=== PATIENT | female | born 1945 | race Two or more races ===

== ENCOUNTER 2021-04-10 22:58 | Emergency (ER) | payer MEDICARE, SELFPAY ==
[2021-04-10 23:00] VITALS: BP 189/101; PULSE 64; RESP 18; TEMP 36.3; O2SAT 99
[2021-04-10 23:30] VITALS: BP 172/93; PULSE 62; RESP 16; O2SAT 97
[2021-04-10 23:58] VITALS: BP 153/78; PULSE 62; RESP 18; O2SAT 96
[2021-04-11 00:28] VITALS: BP 137/68; PULSE 61; RESP 15; O2SAT 98
[2021-04-11 00:45] LABS: Anion Gap 8 mmol/L (8-16); Blood Urea Nitrogen 14 mg/dL (7-17); Calcium 9.3 mg/dL (8.4-10.2); Carbon Dioxide 23 mmol/L (22-30); Chloride 109 mmol/L (98-107); Estimated CRCL calculation 71 ml/min; Estimated Glomerular Filt Rate > 60; Glucose 137 mg/dL (65-105); Magnesium 2.1 mg/dL (1.6-2.3); Potassium 3.6 mmol/L (3.4-5.0); Sodium 140 mmol/L (137-145)
--- NOTE | 2021-04-11 01:58 | ED.GENADULT ---
HPI - General Adult General Chief complaint: Recheck/Abnormal Lab/Rx Stated complaint: Blood pressure elevated, not feeling well. Time Seen by Provider: 04/10/21 23:29 History of Present Illness HPI narrative: Patient is a 75-year-old female who presents ER with elevated blood pressures. Reports at home her blood pressures been running in the 200s on multiple checks. She had taken her home Coreg and hydralazine. Reports she had been very upset during the day and is unsure if that was why her blood pressure was elevated. No chest pain or shortness of breath or nausea or vomiting. No additional concerns. Related Data Home Medications Medication Instructions Recorded Confirmed aspirin 81 mg tablet,delayed 81 mg PO DAILY 01/22/21 01/22/21 release Allergies Allergy/AdvReac Type Severity Reaction Status Date / Time poison naga extract Allergy Mild rash Verified 04/10/21 23:22 Sulfa (Sulfonamide Allergy Mild Hives Verified 04/10/21 23:22 Antibiotics) Review of Systems Review of Systems: All systems reviewed & are unremarkable except as noted in HPI and below Constitutional: Constitutional: Denies chills, Denies fever(s) and Denies weakness Cardiovascular: Cardiovascular: Denies chest pain, Denies rapid heart rate and Denies radiating jaw, neck or arm pain Respiratory: Respiratory: Denies cough and Denies dyspnea Gastrointestinal: Gastrointestinal: Denies nausea Psychiatric: Psychiatric: Reports anxiety PMFSH Past Medical History Medical History (Updated 04/11/21 @ 02:01 by Olayinka Villasenor MD) Generalized anxiety disorder Hypertension Mixed hyperlipidemia Osteoarthritis, multiple sites Surgical History Surgical History (Updated 04/11/21 @ 02:00 by Olayinka Villasenor MD) H/O arthroscopic knee surgery Family History Family History Other Family history of coronary artery disease Hypertension Social History Social History Social History: Second hand tobacco smoke exposure: No Alcohol intake: never Substance use: never Substance use type: does not use Gender identity (if verbalized by the patient): Female Exam Narrative: Exam Narrative: GENERAL: Well-appearing, well-nourished, and in no acute distress. HEAD: Normocephalic, atraumatic. ENT: Mucous membranes moist. CHEST: Clear to auscultation. No respiratory distress. HEART: Regular rate and rhythm. Normal peripheral pulses. ABDOMEN: Soft, nontender, nondistended. EXTREMITIES: Normal range of motion. No edema. SKIN: Warm, dry, no rash. NEURO: Alert and oriented x3. Course Course Emergency Course: Blood pressure has been variable but markedly improved from what she reports at home. Recommend follow-up with PCP. Vital Signs Vital signs: Vital Signs Temperature 97.4 F L 04/10/21 23:00 Pulse Rate 64 04/10/21 23:00 Respiratory Rate 18 04/10/21 23:00 Blood Pressure 189/101 H 04/10/21 23:00 Pulse Oximetry 99 04/10/21 23:00 Temperature 97.4 F L 04/10/21 23:00 Pulse Rate 61 04/11/21 00:28 Respiratory Rate 15 04/11/21 00:28 Blood Pressure 137/68 04/11/21 00:28 Pulse Oximetry 98 04/11/21 00:28 Medical Decision Making Vital Signs Vital Signs: Vital Signs Temperature 97.4 F L 04/10/21 23:00 Pulse Rate 64 04/10/21 23:00 Respiratory Rate 18 04/10/21 23:00 Blood Pressure 189/101 H 04/10/21 23:00 Pulse Oximetry 99 04/10/21 23:00 Temperature 97.4 F L 04/10/21 23:00 Pulse Rate 61 04/11/21 00:28 Respiratory Rate 15 04/11/21 00:28 Blood Pressure 137/68 04/11/21 00:28 Pulse Oximetry 98 04/11/21 00:28 Lab Data Result diagrams: 04/11/21 00:27 Labs: Lab Results 04/11/21 Range/Units 00:27 Sodium 140 (137-145) mmol/L Potassium 3.6 (3.4-5.0) mmol/L Chloride 109 H (98-107) mmol/L Carbon Dioxide 23 (22-
[2021-04-11 02:14] VITALS: BP 141/78; PULSE 65; RESP 18; O2SAT 100
== END 2021-04-11 02:16 | disposition home or self-care (01) ==
PROVIDERS: Emergency Provider Emergency Medicine; PCP Family Medicine
DX: I10 Essential (primary) hypertension (principal); Z79.82 Long term (current) use of aspirin; F41.1 Generalized anxiety disorder; E78.2 Mixed hyperlipidemia; M19.90 Unspecified osteoarthritis, unspecified site
CPT/HCPCS: 36415; 80048; 83735; 99283

== ENCOUNTER 2021-04-30 08:12 | Outpatient (CLI) | payer MEDICARE, SELFPAY ==
--- NOTE | ~2021-04-30 | MM_ITS ---
EXAMINATION: MM screening dustin BI w giancarlo HISTORY: Screening TECHNIQUE: Craniocaudal and mediolateral oblique 3-D tomosynthesis images were obtained and synthetic 2-D images were generated. CAD analysis was submitted and interpreted. COMPARISON: 12/27/2017 BREAST PARENCHYMAL COMPOSITION: There are scattered areas of fibroglandular density. FINDINGS: There is no evidence of suspicious mass, calcification, or architectural distortion to sugg est malignancy in either breast. There has been no suspicious interval change. IMPRESSION: 1. No mammographic evidence of malignancy. 2. Recommend routine screening mammography in one year. BI-RADS Category 1: Negative Reviewed, dictated and finalized at location A.
--- NOTE | ~2021-04-30 | DEXA_ITS ---
Bone Density Report Name: Sarah Whitley Age: 75 Sex: Female Ethnicity: White Date of : 1945 Indication: osteopenia; height loss; prior fracture; postmenopausal Referring Provider: Sary Blunt Study: Bone densitometry was performed. Exam Date: April 30, 2021 Accession number: [id number] Bone Density: Region BMD T-score Z-score Classification AP Spine (L1, L3) 1.133 1.1 3.6 Normal Femoral Neck (Left) 0.687 -1.5 0.7 Osteopenia Total Hip (Left) 0.804 -1.1 0.8 Osteopenia Total Hip Bilateral Avg 0.770 -1.4 0.5 Osteopenia Femoral Neck (Right) 0.818 -0.3 1.9 Normal Total Hip (Right) 0.734 -1.7 0.2 Osteopenia World Health Organization criteria for BMD impression classify patients as: Normal (T-score at or above -1.0), Osteopenia (T-score between -1.0 and -2.5), or Osteoporosis (T-score at or below -2.5). 10-year Fracture Risk(1): Major Osteoporotic Fracture 17% Hip Fracture 3.5% Reported Risk Factors: [place] (), Neck BMD=0.687, BMI=23.2, previous fracture (1) FRAX(R) Version 3.08. Fracture probability calculated for an untreated patient. Fracture probability may be lower if the patient has received treatment. Previous Exams: Region Exam Age BMD T-score BMD Change BMD Change Date g/cm2 vs Baseline vs Previous AP Spine(L1, L3) 04/30/2021 75 1.133 1.1 -0.004(-0.3%) -0.004(-0.3%) 02/08/2019 73 1.136 1.1 Total Hip(Left) 04/30/2021 75 0.804 -1.1 -0.024(-2.9%) -0.024(-2.9%) 02/08/2019 73 0.827 -0.9 Total Hip(Right) 04/30/2021 75 0.734 -1.7 0.000(0.0%) 0.000(0.0%) 02/08/2019 73 0.734 -1.7 *Denotes significance at 95% confidence level, LSC for AP Spine = 0.022 g/cm2, LSC for Total Hip = 0.027 g/cm2 Clinical Information Provided by Patient: Has had a low trauma fracture Has used the following medications: Vitamin D Patient maximum height was 65 Menopause Age: 53 Onset of menses at age 11 Number of children 2 Impression: The patient has low bone mass, based on the Right Total Hip T-score. The patient has an estimated ten-year risk of hip fracture of 3.5% and an estimated ten-year risk of major fracture of 17%, based on the WHO FRAX algorithm. The patient has risk factors, including: previous fracture. No significant bone loss was observed. Discussion: BONE DENSITY IS LOW AT ONE OR MORE SKELETAL SITES. THE PATIENT'S BMD AND CLINICAL RISK FACTORS CONTRIBUTE TO THIS PATIENT'S INCREASED RISK OF FRAC
== END 2021-04-30 08:13 | disposition home or self-care (01) ==
PROVIDERS: PCP Family Medicine; Visit Provider Physician Assistant
DX: Z12.31 Encounter for screening mammogram for malignant neoplasm of breast (principal); Z78.0 Asymptomatic menopausal state; M85.852 Other specified disorders of bone density and structure, left thigh; M85.851 Other specified disorders of bone density and structure, right thigh
CPT/HCPCS: 77063; 77067; 77080

== ENCOUNTER 2023-03-18 08:13 | Outpatient (CLI) | payer MEDICARE, SELFPAY ==
[2023-03-24 12:02] VITALS: BMI 22.3
--- NOTE | 2023-03-24 12:02 | WPDSLEEPSTUD ---
Sleep Study Date of Study: 03/18/23 Ordering Provider: Luma Demarco, BOTTOM CAGER Interpreting Physician: Sharron Rodriguez MD Sleep Study Type: Polysomnogram Height: 1.63 m Weight: 58.967 kg Body Mass Index: 22.3 Neck Circumference (inches): 13 [place]: 8 Reason for Sleep Study Restless legs syndrome, paroxysmal atrial fibrillation, low oxygen levels at night Sleep History Sarah Whitley is a 77-year-old female with paroxysmal atrial fibrillation who is being referred for sleep study due to paroxysmal atrial fibrillation and oxygen desaturation at night. She rarely awakens at night with heartburn, belching, or coughing.? She does not know if she snores. She rarely has trouble sleeping when she has a cold. She rarely sweats excessively at night, occasionally notices her heart pounding or beating irregularly at night. ?She frequently falls asleep during the day. She does not fall asleep while driving. She does not have loss of muscle tone with strong emotion. ?She does not have daytime difficulties due to excessive daytime sleepiness.? She rarely feels paralyzed on waking or falling asleep. She rarely experiences vivid dreams upon waking or falling asleep. She never feels afraid of going to sleep. She rarely has nightmares. She occasionally recalls her dreams. She frequently has thoughts racing through his mind, occasionally feels sad or depressed, frequently feels anxiety or worries about things. She never notices parts of her body jerk. She does not mention whether or not she kicks at night. She frequently feels crawling or aching feelings in his legs. She always feels leg pain at night. She never has morning jaw pain. ?She always is bothered by pain during the day and always is awakened by pain during the night. ?She frequently wakes up feeling stiff in the morning, frequently feels sore or achy in the morning, frequently wakes with pain in the neck, spine or joints. ?She reports an 8 lb weight loss in the last year. Normal bedtime is around midnight usually falling asleep quickly, typically gets about 4-5 hours of sleep per night, waking time is variable. ?She wakes up between 3 and 4 times during the night, returns to sleep sometimes more quickly than other times.? While awake at night, she may go to the bathroom or put he wraps on parts of her body that or aching.? She takes naps in the afternoon or evening. ?A short nap lasting 10 or 15 minutes may be refreshing.? She is usually drowsy on waking in the morning. Habits: Tobacco: never?? Caffeine: none?? Alcohol: none?? Recreational substances: none. [facility] Past Medical History Medical History Dyslipidemia Essential (primary) hypertension Generalized anxiety disorder Hypertension Mixed hyperlipidemia Mixed hyperlipidemia Murmur, cardiac Osteoarthritis, multiple sites Osteopenia Postmenopausal Psychophysiological insomnia Screening for breast cancer Screening for colon cancer Vitamin D deficiency Surgical History Surgical History H/O arthroscopic knee surgery Family History Family History Other Family history of coronary artery disease Hypertension Social History Social History Social History: Smoking status: Never smoker Second hand tobacco smoke exposure: No Alcohol intake: current Alcohol use details: occasionally Substance use: never Substance use type: does not use Lack of Transportation: No Lack of Food: Never True Current Housing: I Have Housing Concerned About Future Housing: No Difficulty Paying Gas/Electric Bills: No Difficulty Paying for Meds: No Currently Unemployed: YES Difficulty w/ Childcare or Family Care: No Living arrangements: with family Occupation/Education: retired Gender identity (if verbalized by th
== END 2023-03-19 07:01 | disposition home or self-care (01) ==
LOC: ANHCSM 08:14
PROVIDERS: PCP Family Medicine; Visit Provider Nurse Practitioner Adult Health
DX: G47.61 Periodic limb movement disorder (principal)
CPT/HCPCS: 95810

== ENCOUNTER 2023-09-09 11:47 | Outpatient (CLI) | payer MEDICARE, SELFPAY ==
--- NOTE | 2023-09-09 12:18 | ECG_ITS ---
Measurements Intervals [place] Rate: 53 P: 63 TN: 159 QRS: -55 QRSD: 93 T: 4 QT: 469 QTc: 443 Interpretive Statements SINUS BRADYCARDIA WITH OCCASIONAL SUPRAVENTRICULAR PREMATURE COMPLEXES LEFT ANTERIOR FASCICULAR BLOCK [QRS AXIS <= -45, QR IN I, RS IN II] ABNORMAL ECG NO PREVIOUS ECG AVAILABLE FOR COMPARISON Electronically Signed On 09-09-2023 13:39:52 RADAR SIGNAL PROCESSING ENGINEER by Kelby Wallace M.D.
[2023-09-09 12:29] LABS: Hematocrit 39.3 % (37.0-47.0); Hemoglobin 12.2 g/dL (12.0-15.0)
[2023-09-09 12:49] LABS: Albumin Level 4.3 g/dL (3.5-5.1); Estimated Glomerular Filt Rate > 60; Glucose 95 mg/dL (65-110)
== END 2023-09-09 11:48 | disposition home or self-care (01) ==
PROVIDERS: PCP Family Medicine; Visit Provider Orthopaedic Surgery
DX: M16.11 Unilateral primary osteoarthritis, right hip (principal); E78.5 Hyperlipidemia, unspecified; I48.0 Paroxysmal atrial fibrillation
CPT/HCPCS: 36415; 82040; 82565; 82947; 85014; 85018; 93005

== ENCOUNTER 2023-09-23 20:52 | Emergency (ER) | payer MEDICARE, SELFPAY ==
--- NOTE | ~2023-09-23 | CT_ITS ---
EXAMINATION: CT brain wo con DATE: 09/23/2023 21:45 INDICATION: Head injury TECHNIQUE: Computed tomography (CT) of the head was performed without intravenous contrast. Sagittal and coronal reconstructions were performed. The mA was adjusted according to patient size. Iterative reconstruction technique was employed. The dose-length product was 681.00 mGy-cm. COMPARISON: None FINDINGS: No fracture. No acute intracranial hemorrhage, acute infarction or abnormal extra axial fluid collect ion. Relatively symmetric bilateral basal ganglia small old lacunar infarcts involving the heads of t he caudate nuclei and anterior limbs of the internal capsules. Symmetric prominence of the sulci cons istent with mild age-appropriate diffuse cerebral volume loss. Ventricles are normal and symmetric. N o mass/mass effect. Changes of bilateral intraocular lens replacement. The orbits, paranasal sinuses and mastoid air cells are normal. Intracranial calcified cerebral atherosclerosis is noted. I ESSION: 1. No fracture or acute intracranial process. 2. 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 Reviewed, dictated and finalized at location A. MER OPERATOR
[2023-09-23 20:53] VITALS: BP 185/89; PULSE 66; RESP 20; TEMP 37; O2SAT 98
--- NOTE | 2023-09-23 21:39 | ED.GENADULT ---
HPI - General Adult General Chief complaint: Head Injury Stated complaint: head trauma Time Seen by Provider: 09/23/23 21:22 History of Present Illness HPI narrative: the patient is a 78-year-old female who presents emerged from with a chief complaint of head injury. The patient reports that she was working on a fireplace and stood up and a stocking sepulveda fell off of the insulin structure in the head the patient reports that she is on anticoagulants and was concerned because you was told if she ever hit her head on a blood thinner that she should be checked out the patient denies loss of consciousness reports that she is just has some pain in the right occipital region of her scalp reports the laceration. Related Data Home Medications Medication Instructions Recorded Confirmed alprazolam 0.25 mg tablet 0.25 mg PO QHS PRN 02/18/22 08/05/23 ascorbate calcium (vitamin C) 500 500 mg PO DAILY 02/18/22 08/05/23 mg tablet calcium carbonate 600 mg calcium 600 mg PO DAILY 02/18/22 08/05/23 (1,500 mg) tablet calcium polycarbophil 625 mg 1,250 mg PO DAILY 02/18/22 08/05/23 tablet (FiberCon) cholecalciferol (vitamin D3) 50 50 mcg PO DAILY 02/18/22 08/05/23 mcg (2,000 unit) capsule rolscybj-vvrc-cxys 8 mg-folic 400 1 tablet PO DAILY 02/18/22 08/05/23 mcg-K 50 mcg-lutein 300 mcg tablet (Centrum Silver Women) rivaroxaban 20 mg tablet (Xarelto) 20 mg PO DAILY 02/18/22 08/05/23 sotalol 80 mg tablet 80 mg PO DAILY 02/18/22 08/05/23 Allergies Allergy/AdvReac Type Severity Reaction Status Date / Time poison naga extract Allergy Mild rash Verified 09/23/23 21:20 Sulfa (Sulfonamide Allergy Mild Hives Verified 09/23/23 21:20 Antibiotics) Review of Systems Review of Systems: A 10 system review of systems was completed on the patient and is negative except for what is stated in the HPI. Nursing and ancillary documentation was reviewed. FORMERLY [facility], [facility] Past Medical History Medical History Dyslipidemia Essential (primary) hypertension Generalized anxiety disorder Hypertension Mixed hyperlipidemia Mixed hyperlipidemia Murmur, cardiac Osteoarthritis, multiple sites Osteopenia Postmenopausal Psychophysiological insomnia Screening for breast cancer Screening for colon cancer Vitamin D deficiency Surgical History Surgical History H/O arthroscopic knee surgery Family History Family History Other Family history of coronary artery disease Hypertension Social History Social History Social History: Smoking status: Never smoker Second hand tobacco smoke exposure: No Alcohol intake: current Alcohol use details: occasionally Substance use: never Substance use type: does not use Lack of Transportation: No Lack of Food: Never True Current Housing: I Have Housing Concerned About Future Housing: No Difficulty Paying Gas/Electric Bills: No Difficulty Paying for Meds: No Currently Unemployed: YES Education: Don't Know Difficulty w/ Childcare or Family Care: No Living arrangements: with family Occupation/Education: retired Gender identity (if verbalized by the patient): Female Sexual Orientation (if Verbalized by the Patient): Straight or Heterosexual Spiritual care concerns: No Agree to blood products: Yes Exam Narrative: GENERAL: Well-appearing, well-nourished, and in no acute distress. HEAD: Normocephalic, atraumatic. EYES: PERRLA and EOMI. ENT: Nares clear, no rhinorrhea or epistaxis. Mucous membranes moist. NECK: Supple. CHEST: Clear to auscultation. No respiratory distress. HEART: Regular rate and rhythm. No murmur heard. Normal peripheral pulses. ABDOMEN: Soft, nontender, nondistended, normal active bowel
[2023-09-23 22:27] VITALS: BP 171/86; PULSE 61; RESP 18; O2SAT 96
== END 2023-09-23 22:26 | disposition home or self-care (01) ==
PROVIDERS: Emergency Provider Emergency Medicine; PCP Family Medicine
DX: S09.90XA Unspecified injury of head, initial encounter (principal); E78.5 Hyperlipidemia, unspecified; I10 Essential (primary) hypertension; Z79.01 Long term (current) use of anticoagulants; W22.8XXA Striking against or struck by other objects, initial encounter
CPT/HCPCS: 70450; 99284

== ENCOUNTER 2023-12-09 10:01 | Outpatient (CLI) | payer MEDICARE, SELFPAY ==
[2023-12-09 12:00] LABS: Basophils Percent Auto 0.6 % (0.2-1.2); Eosinophils Absolute Auto 0.2 K/mm3 (0-0.3); Eosinophils Percent Auto 2.4 % (0-4.4); Hematocrit 40.1 % (37.0-47.0); Hemoglobin 12.5 g/dL (12.0-15.0); Immature Granulocyte Absolute 0.01 K/mm3 (0.00-0.031); Immature Granulocyte Percent A 0.1 % (0-0.5); Lymphocytes Absolute Auto 1.29 K/mm3 (0.9-3.2); Mean Corpuscular HGB Conc 31.2 g/dl (32-36); Mean Corpuscular Volume 89.7 fl (80-100); Mean Platelet Volume 10.1 fl (7.4-10.4); Monocytes Absolute Auto 0.6 K/mm3 (0.1-0.6); Monocytes Percent Auto 8.4 % (2.6-8.5); Neutrophils Absolute Auto 5.1 K/mm3 (1.3-6.7); Neutrophils Percent Auto 70.5 % (45.5-73.1); Platelet Count Result 289 k/mm3 (150-375); Red Blood Count 4.47 M/mm3 (4.2-5.4); Red Cell Distribution Width 15.4 % (11.5-14.5); White Blood Count 7.2 K/mm3 (4.5-10.0)
[2023-12-09 12:09] LABS: Urine Cotinine NEGATIVE
[2023-12-09 12:14] LABS: Albumin Level 4.1 g/dL (3.5-5.1); Estimated Glomerular Filt Rate > 60; Glucose 108 mg/dL (65-110)
[2023-12-09 13:33] LABS: MRSA (PCR) NOT DETECTED (NOT DETECTE)
== END 2023-12-09 10:02 | disposition home or self-care (01) ==
LOC: ANHSURGERY 10:06
PROVIDERS: PCP Family Medicine; Visit Provider Orthopaedic Surgery
DX: Z01.818 Encounter for other preprocedural examination (principal); M16.11 Unilateral primary osteoarthritis, right hip
CPT/HCPCS: 80307; 82040; 82565; 82947; 83036; 85025; 87641

== ENCOUNTER 2024-01-05 01:12 | Day surgery (SDC) | payer MEDICARE, SELFPAY ==
[2023-12-09 10:27] VITALS: BP 129/67; PULSE 60; RESP 16; TEMP 37.2; O2SAT 97; BMI 22.4
--- NOTE | 2023-12-09 10:49 | PC.NURSE ---
Report to the Outpatient Waiting Room, entrance under the green pavilion located off [facility], at time __8:30AM on date __01/05/24 . Planned Procedure Time: __10:30AM . Time changes happen often and if your time is changed the preop area will call you the afternoon before. - You and your visitor will be asked to self-screen and do not enter if you have any COVID symptoms. - A mask is optional within the hospital at this time. Patients may have clear liquids (water, carbonated beverages, clear teas, apple juice) until 3 hours prior to surgery with a maximum of 20 ounces. - No food from midnight until time of surgery. Take the following medications with a SIP of water the morning of surgery: TAKE SOTALOL. MAY TAKE GABAPENTIN, ALPRAZOLAM AND TRAMADOL NEEDED DO NOT STOP ANY OF YOUR OTHER PRESCRIPTION MEDICATIONS PRIOR TO SURGERY ?EXCEPT THE FOLLOWING Medications to discontinue per physician ___HOLD XERALTO PER DR CLARK. HOLD ALL VITAMINS/SUPPLEMENTS 3 DAYS PRE-OP- LAST 01/01/24. Please no make-up, nail guinean, hairspray, perfume, deodorant, or body powder the day of surgery. No jewelry (including any body piercings) or valuables the day of surgery, leave them at home. Please take a shower or bath the night before, or the morning of, surgery with an antibacterial soap. Wear comfortable, loose fitting clothing. - Jewelry must be removed prior to entering the operating room. Rings and piercings that are not removed may be cut off. - The hospital will not accept responsibility for valuables. - Please leave all valuables, including medications, at home the day of surgery. If you are going home after surgery, a licensed automobile drivers must drive you home. - NO public transportation without another adult if you receive anesthesia. - We recommend that an adult stay with you for 24 hours following discharge. - We also recommend that you do not drive, make important decision, drink alcoholic beverages, or take any drugs that were not prescribed by your health care provider for at least 24 hours after your discharge time. Follow any additional instructions given to you from your surgeon. If you or anyone in your household have experienced Covid symptoms in the past week, please notify your surgeon or the nurse liaison at the phone number below for possible testing. Telephone instructions given to ____PATIENT and asked if any additional questions and then verbalized understanding. Patient advised to call surgeon office or pre surgery nurse liaison [phone] if any additional questions.
[2024-01-05] VITALS (15 sets, daily range): BP systolic 123–163; BP diastolic 67–87; PULSE 53–88; RESP 10–20; TEMP 36.1–37.1; O2SAT 93–99; BMI 22.0
--- NOTE | ~2024-01-05 | XR_ITS ---
EXAMINATION: XR hip RT min 2V DATE: 01/05/2024 13:05 INDICATION: Total right hip arthroplasty. Postop. TECHNIQUE: 2 views of right hip were obtained. COMPARISON: Right hip radiographs 08/05/2023 FINDINGS: There is a total right hip arthroplasty in near-anatomic alignment. No fracture. There is g as in the soft tissues, consistent with recent surgery. IMPRESSION: 1. Total right hip arthroplasty in near-anatomic alignment. Reviewed, dictated and finalized at location A.
[2024-01-05] MEDS: ACETAMINOPHEN 500 MG TABLET 1000 MG PO ×3 (08:40→20:03)
[2024-01-05] MEDS: TRANEXAMIC ACID 1,000MG/ISO100 1,000 MG/100 ML BAG 200 MG IVPB (09:27)
--- NOTE | 2024-01-05 09:47 | WPDHPUPDATE1 ---
History and Physical Update Update Date/Time: 01/05/24 09:47 History and Physical has been reviewed, including an updated exam of the patient. There are NO changes in the patient's condition. Risks, benefits, and alternatives have been discussed and questions answered. Patient agrees to proceed with procedure.
--- NOTE | 2024-01-05 10:09 | WPDANESEPPF ---
Anes - Initial Pre Proc Eval Procedure: Operation Date: 01/05/24 10:00 Proposed Procedures p Right Total Hip Arthroplasty - Arnulfo Pizarro MD Date/Time: 01/05/24 10:09 Surgeon: Arnulfo Pizarro MD Pre Op Diagnosis: primary oa right hip Patient Data Age: 78 Gender: F Height: 1.63 m Weight: 58.3 kg Last Vital Signs Temp 98.7 F 01/05/24 09:05 Pulse 88 01/05/24 09:05 Resp 14 01/05/24 09:05 BP 123/87 01/05/24 09:05 Pulse Ox 98 01/05/24 09:05 O2 Del Method Room Air 01/05/24 09:05 Allergies Allergy/AdvReac Type Severity Reaction Status Date / Time poison naga extract Allergy Mild rash Verified 01/05/24 08:20 Sulfa (Sulfonamide Allergy Mild Hives Verified 01/05/24 08:20 Antibiotics) Home Medications Medication Instructions Recorded Confirmed Type alprazolam 0.25 mg tablet 0.25 mg PO QHS PRN Anxiety 02/18/22 01/05/24 History calcium carbonate 600 mg calcium 600 mg PO DAILY 02/18/22 12/12/23 History (1,500 mg) tablet calcium polycarbophil 625 mg 625 mg PO DAILY 02/18/22 12/12/23 History tablet (FiberCon) cholecalciferol (vitamin D3) 50 50 mcg PO DAILY 02/18/22 12/12/23 History mcg (2,000 unit) capsule wanjqjnu-arvl-iaod 8 mg-folic 400 1 tablet PO DAILY 02/18/22 12/12/23 History mcg-K 50 mcg-lutein 300 mcg tablet (Centrum Silver Women) rivaroxaban 20 mg tablet (Xarelto) 20 mg PO DAILY 02/18/22 01/05/24 History sotalol 80 mg tablet 80 mg PO BID 02/18/22 12/12/23 History ibandronate 150 mg tablet (Boniva) 150 mg PO MONTHLY #4 tabs 12/10/22 12/12/23 Rx gabapentin 100 mg capsule See Rx Instructions .Route 07/12/23 12/12/23 Rx .COMPLEX #180 caps tramadol 50 mg tablet 50 mg PO BID PRN pain #180 tabs 08/25/23 12/12/23 Rx rosuvastatin 5 mg tablet See Rx Instructions .Route 09/11/23 12/12/23 Rx .COMPLEX #100 tabs ropinirole 0.5 mg tablet See Rx Instructions .Route 12/06/23 12/12/23 Rx .COMPLEX #30 tabs ascorbic acid (vitamin C) 100 mg 100 mg PO DAILY 12/09/23 12/12/23 History tablet biotin 2,500 mcg capsule 2,500 mcg PO DAILY 12/09/23 12/12/23 History calcium carbonate 200 mg calcium 200 mg PO BID PRN Indigestion 12/09/23 12/12/23 History (500 mg) chewable tablet (Tums) calcium polycarbophil 625 mg 1,250 mg PO DAILY 12/09/23 12/12/23 History tablet (FiberCon) magnesium oxide 400 mg PO DAILY 12/09/23 01/05/24 History oxycodone-acetaminophen 5 mg-325 1 - 2 tablet PO Q4-6H PRN pain #30 01/05/24 Rx mg tablet tabs rivaroxaban 10 mg tablet (Xarelto) 10 mg PO DAILY 6 days #6 tabs 01/05/24 Rx Laboratory Tests 01/05/24 08:27 Blood Type A Positive Antibody Screen Negative Patient hx anesthesia problems: post op nausea/vomiting (has bad motion sickness; will try Scopolamine patch; if confusion results will remove) Family hx anesthesia problems: none Results Review: All pre-operative results and documents have been reviewed as part of the pre-operative evaluation. COUNTS INCLUDE 234 BEDS AT THE [facility] Past Medical History Medical History Dyslipidemia Essential (primary) hypertension Generalized anxiety disorder Hypertension Mixed hyperlipidemia Mixed hyperlipidemia Murmur, cardiac Osteoarthritis, multiple sites Osteopenia Postmenopausal Psychophysiological insomnia Screening for breast cancer Screening for colon cancer Vitamin D deficiency Surgical History Surgical History H/O arthroscopic knee surgery Family History Family History Other Family history of coronary artery disease Hypertension Social History Social History (Updated 12/12/23 @ 10:14 by Giselle Kelsey MA) Social History: Smoking status: Never smoker Second hand tobacco smoke exposure: No Alcohol intake: current Alcohol use details: occasionally Substance use: never Substance use type:
[2024-01-05] MEDS: SCOPOLAMINE 1 MG PATCH 1 PATCH TRANSDERM (10:17)
[2024-01-05] MEDS: LACTATED RINGERS 1,000 ML 30 ML IV CONT ×2 (10:18→12:30)
[2024-01-05] MEDS: ceFAZolin 2 GM/D5W 50 ML 2 GM/50 ML BAG IVPB ×2 (10:20→17:20)
[2024-01-05] MEDS: SODIUM CHLORIDE 0.9% IV 37.7 ML, MORPHINE SULFATE INJ (*CRX) 2 MG, ROPivacaine HCL 1% 2... INFILTRATE (11:04)
[2024-01-05] MEDS: fentaNYL CITRATE INJ (*CRX) 100 MCG/2 ML VIAL 25 MCG IV PUSH ×3 (12:50→13:05)
--- NOTE | 2024-01-05 14:06 | W.PM.PROC2 ---
Procedure Note - Detailed Date of Procedure 01/05/24 Pre-op Diagnosis Primary oa right hip Post-op Diagnosis Same Procedure Performed Right Total Hip Arthroplasty Surgeon Arnulfo Pizarro MD Inclusion Internship Susan Medina PA-C Anesthesia General Findings Notable hip flexion contracture. Satisfactory bone quality. Description of Procedure The patient was given preoperative antibiotics. A general anesthetic was administered. The patient was carefully placed in the lateral decubitus position on the PEG board. The shoulders and hips were carefully positioned for component and leg length positioning reference. The hip was prepped and draped in the usual sterile fashion. A longitudinal incision was created over the posterior aspect of the greater trochanter. Careful dissection was brought down through the deep fascia with electrocautery. A minimally invasive optimized posterior approach to the hip was performed. The short external rotators and capsule were taken down in an L-shaped capsulotomy. The tissue was tagged for later repair using number 2 high strength suture. The femoral neck was measured and taken in situ. The femoral head was removed. The acetabulum was carefully exposed. The inferior capsule was released. The labrum was resected. The acetabulum was sequentially reamed to one over the intended cup size. The cup was impacted into position with excellent press-fit. Typical anatomic landmarks, including the bony contact points as well as the inferior transverse acetabular ligament were used to confirm cup positioning with preoperative templating. Attention was turned to the femur, which was carefully exposed. The hip was reamed and then broached sequentially. Excellent press-fit was obtained with the broach. The hip was trialed. Measurements were utilized, including the lesser trochanter as well as the center of the femoral head and the tip of the trochanter, and excellent assessment of the offset and leg lengths were confirmed. The real component was impacted into position. Trialing confirmed appropriate leg length and offset with soft tissue balancing as well apparent feel of the leg, both at the knee and the heel. Soft tissues were assessed using the the iliotibial band. Reduction of the posterior capsule and external rotators were also used as a secondary assessment. The hip was copiously irrigated with pulsatile lavage antibiotic solution periodically throughout the procedure. The real components were then assembled and reduced. The hip was stable throughout typical maneuvers, including extension, external rotation to 70 degrees, the position of sleep as well as flexion to 90 degrees with internal rotation past 35 degrees. The shake test confirmed stability without impingement. Osteophytes were removed as necessary. The short external rotators and capsule were repaired back to the posterior trochanter through drill holes. The deep fascia was repaired with running number 2 barbed suture, followed by 2-0 Stratafix suture and 3-0 Stratafix suture in the dermis. Steri-Strips were placed on the skin, followed by a sterile occlusive dressing. There were no complications. Meticulous hemostasis was maintained with the AquaMantys device. The patient was brought to the recovery room in stable condition. There were no complications. Physician nutrition assistant, Susan Medina PA-C, required for surgery; including patient positioning, draping, tissue retraction, maintaining instrument position, hip dislocation/ relocation, wound closure, and dressing placement. Implants The Accolade II hip stem, 127 degree size 4 , was utilized with excellent press-fit. The 50 mm Trident II acetabular component was impacted with excellent press-fit stability. Standard polyethylene liner the +-5, 36 mm Biolox ceramic femoral head was utilized. Estimated Blood Loss 200 Drains No Packing No Pathology None sent Complications No immediate complications Cond
--- NOTE | 2024-01-05 14:10 | PC.NURSE ---
This patient, Sarah Whitley, was admitted to [facility] Surg Room 312-01. Patient/family oriented to hospital policies and general routines including ID bracelet, bed and alarms, visiting hours, pain management, procedures, bathroom and other care routines, personal items, smoking policy, room service/diet, and visiting hours. Information on how to activate the Rapid Response Team has been discussed. Patient/Family are encouraged to report perceived risks to care and to ask questions if they do not understand what they are told or what they should do.
[2024-01-05] MEDS: ONDANSETRON INJ 4 MG/2 ML VIAL IV PUSH ×2 (14:18→18:25)
[2024-01-05] MEDS: SODIUM CHLORIDE 0.9% IV 1,000 ML 125 ML IV CONT (14:34)
--- NOTE | 2024-01-05 15:01 | PCPTNOTE ---
Attempted PT evaluation, pt to nauseated to participate in skilled therapy. Will follow.
[2024-01-05] MEDS: ROSUVASTATIN 5 MG TABLET PO (17:20)
[2024-01-05] MEDS: SENNA/DOCUSATE SODIUM TABLET 2 TAB PO (17:20)
[2024-01-05] MEDS: SOTALOL HCL 80 MG TABLET PO (17:20)
[2024-01-05] MEDS: traMADol HCL (*CRX) 50 MG TABLET PO (17:30)
--- NOTE | 2024-01-05 17:57 | PM.IMCN ---
Assessment and Plan Assessment and plan (1) Status post total hip replacement, right: Code(s): Z96.641 - Presence of right artificial hip joint Status: Acute Assessment and Plan: - ambulate with assistance and up to chair - apply gel pads - hip precautions in place - use IS - neurovasc checks - see order for intervals - SCDs and TEDs - resume diet - pain management - zofran and Phenergan PRN for nausea, nursing staff verbally told to give IV Benadryl as 3rd line antiemetic - monitor labs in AM - CBC and BMP - bowel regimen: docusate/senna, polyethylene glycol - maintenance fluids: NS 125 mL/hr x 8 hrs - prophylactic abx - Ancef x3 (2) PAF (paroxysmal atrial fibrillation): Code(s): I48.0 - Paroxysmal atrial fibrillation Status: Acute Assessment and Plan: - EKG, prior (09/2023): Sinus jethro with occasional supraventricular premature complexes, left anterior fascicular block. No previous available for comparison. - hold Xarelto - continue sotalol (3) Hypertension: Qualifiers: Hypertension type: unspecified Qualified Code(s): I10 - Essential (primary) hypertension Code(s): I10 - Essential (primary) hypertension Status: Acute Assessment and Plan: - chronic, currently 139/67 - continue home medications: Sotalol 80 mg b.i.d. - monitor Plan Patient underwent a right total hip arthroplasty today, 328. No experiencing postoperative nausea, vomiting, and gas pain. No other concerns per patient. First and second-line antiemetics ordered, Benadryl as 3rd line. Home Meds/Chronic Conditions - hold home vitamin-C, biotin, calcium carbonate, FiberCon, vitamin D3, Mag, centrum, Xarelto, tramadol - continued Xanax, Tums, Boniva, Requip, rosuvastatin, sotalol Diet: Regular GI Prophylaxis: Famotidine DVT Prophylaxis: SCD and TEDs Lines: Peripheral Code Status: Full Code HPI Date of Consult Consult date: 01/05/24 Requesting Physician: Arnulfo Pizarro MD Primary Care Provider: Chioma Padilla MD Consult Narrative Reason for consult: Medical Managment Narrative: 78 y/o F presented here for surgical management of her severe right hip arthritis. PMH of paroxysmal AFib on Xarelto, HLD, HTN, QUYEN, osteoarthritis, insomnia, osteopenia, and vitamin-D deficiency. SH of previous arthroscopic knee surgery (L, meniscus) and cataracts. Patient reported severe right hip pain and right knee pain that has been progressively worsening over the last several years. Reports pain has been interfering with sleep and is worse at night/evening. Painful ROM with moderate valgus deformity preoperatively. Hip/pelvis XR done in July of 2023 showed moderate severe arthritis with significant osteophytes and with significant progression compared to 2016 films. Per Orthopedic outpatient visit, surgical management indicated for both hip and knee. Experiencing post-operative nausea, vomiting, and gas pain in upper abdomen into her left shoulder. Pain present but controlled. No recent changes to her medications. No other current concerns. Preop workup (12/08): No anemia, no leukocytosis, creatinine 0.6, A1C 6.0, and nasal MRSA not detected. Initial VS: 99.0? F, HR 60, RR 16, 129/67, and 97% on RA. Review of Systems Review of Systems: All systems reviewed & are unremarkable except as noted in HPI and below PMFSH Past Medical History Medical History (Updated 01/05/24 @ 18:07 by Bee Hanley APRN) Dyslipidemia Essential (primary) hypertension Generalized anxiety disorder Hypertension Mixed hyperlipidemia Mixed hyperlipidemia Murmur, cardiac Osteoarthritis, multiple sites Osteopenia PAF (paroxysmal atrial fibrillation) Postmenopausal Psychophysiological insomnia Screening for breast cancer Screening for colon cancer Vitamin D deficiency Surgical History Surgical History (Updated 01/05/24 @ 07:19 by WALDO Posada) H/O arthr
[2024-01-05] MEDS: FAMOTIDINE 20 MG TABLET PO (20:03)
[2024-01-05] MEDS: rOPINIRole HCL 0.5 MG TABLET PO (20:03)
[2024-01-05] MEDS: CALCIUM CARBONATE (TUMS) 500 MG (200 MG ELEMENTAL) PO (20:03)
[2024-01-05] MEDS: GABAPENTIN 100 MG CAPSULE PO (20:03)
[2024-01-05] MEDS: PROMETHAZINE HCL 25 MG/ML AMPUL 12.5 MG IV PUSH (21:30)
[2024-01-06] MEDS: ceFAZolin 2 GM/D5W 50 ML 2 GM/50 ML BAG IVPB ×2 (01:02→08:44)
[2024-01-06] MEDS: ACETAMINOPHEN 500 MG TABLET 1000 MG PO ×2 (01:02→08:43)
[2024-01-06 01:45] VITALS: BP 119/53; PULSE 52; RESP 18; TEMP 36.8; O2SAT 97
[2024-01-06 05:45] VITALS: BP 110/50; PULSE 58; RESP 18; TEMP 36.6; O2SAT 96
[2024-01-06] MEDS: traMADol HCL (*CRX) 50 MG TABLET PO (05:58)
[2024-01-06 07:02] LABS: Basophils Percent Auto 0.2 % (0.2-1.2); Hematocrit 41.2 % (37.0-47.0); Hemoglobin 12.4 g/dL (12.0-15.0); Immature Granulocyte Absolute 0.06 K/mm3 (0.00-0.031); Immature Granulocyte Percent A 0.5 % (0-0.5); Lymphocytes Absolute Auto 1.08 K/mm3 (0.9-3.2); Mean Corpuscular HGB Conc 30.1 g/dl (32-36); Mean Corpuscular Hemoglobin 27.9 pg (26-34); Mean Corpuscular Volume 92.6 fl (80-100); Mean Platelet Volume 10.8 fl (7.4-10.4); Monocytes Absolute Auto 0.7 K/mm3 (0.1-0.6); Monocytes Percent Auto 6.1 % (2.6-8.5); Neutrophils Absolute Auto 10.1 K/mm3 (1.3-6.7); Neutrophils Percent Auto 84.2 % (45.5-73.1); Platelet Count Result 272 k/mm3 (150-375); Red Blood Count 4.45 M/mm3 (4.2-5.4); Red Cell Distribution Width 15.1 % (11.5-14.5)
[2024-01-06 07:14] LABS: Anion Gap 5 mmol/L (4-12); Blood Urea Nitrogen 11 mg/dL (7-17); Calcium 8.9 mg/dL (8.4-10.2); Carbon Dioxide 27 mmol/L (22-30); Chloride 107 mmol/L (98-107); Estimated CRCL calculation 65 ml/min; Estimated Glomerular Filt Rate > 60; Glucose 121 mg/dL (65-110); Potassium 3.7 mmol/L (3.4-5.0); Sodium 139 mmol/L (137-145)
--- NOTE | 2024-01-06 07:20 | PM.DS ---
DS: Admitting Diagnosis Discharge Date 01/06/24 Admitting Diagnosis OA Right hip DS: Discharge Diagnosis Discharge Diagnosis (1) Status post total hip replacement, right: Code(s): Z96.641 - Presence of right artificial hip joint Status: Acute Assessment and Plan: Postop day 1: Total hip arthroplasty. Patient tolerated procedure well. No complications. Pain manageable with pain medication. No numbness or tingling. We had a lengthy discussion regarding postoperative wound care, limitations, expectations, and exercises. Patient shows good understanding. Patient has had initial physical therapy and is tolerating it well. DVT prophylaxis: Xarelto 10 mg daily for 1 week then resume normal 20 mg dose. Pain medication: Percocet. Patient has followup appointment with Dr. Pizarro in 3 weeks DS: Summary Hospital Course Reason for hospitalization: Total hip arthroplasty Hospital Course: Patient tolerated procedure well. Has had initial PT/OT and made good progress. Status at Discharge Functional status at discharge: uses cane/walker Overall status at discharge: patient is progressing back to baseline Time Spent with Patient Time attestation: Total time spent providing and/or coordinating discharge services: Exam Narrative: Thin 78 y/o female. Resting comfortably in bed. Wearing compression socks bilaterally. Dressing dry and intact with no drainage. Mild swelling. No ecchymosis. No erythema. No hematoma. Range of motion limited due to pain. Calf nontender. Thigh nontender. Neurologic status intact. No varicosities. Distal pulses palpable. DS: Data Data Completed and Pending Labs on day of discharge: Labs from last 24 hours 01/06/24 01/05/24 05:54 08:27 WBC 12.0 H RBC 4.45 Hgb 12.4 Hct 41.2 MCV 92.6 MCH 27.9 MCHC 30.1 L RDW 15.1 H Plt Count 272 MPV 10.8 H Immature Gran % (Auto) 0.5 Neut % (Auto) 84.2 H Lymph % (Auto) 9.0 L [place] % (Auto) 6.1 Eos % (Auto) 0.0 Baso % (Auto) 0.2 Lymph # (Auto) 1.08 [place] # (Auto) 0.7 H Eos # (Auto) 0.0 Baso # (Auto) 0.0 Abs Immat Gran (auto) 0.06 H Absolute Neuts (auto) 10.1 H Absolute Nucleated RBC 0.000 Nucleated RBC % 0.0 Sodium 139 Potassium 3.7 Chloride 107 Carbon Dioxide 27 Anion Gap 5 L BUN 11 Creatinine 0.50 L Estim Creat Clear Calc 65 Estimated GFR > 60 Glucose 121 H Calcium 8.9 Blood Type A Positive Antibody Screen Negative Discharge Plan Discharge Patient Disposition: Home, Self-Care Discharge Instructions: See green instruction sheetes Stand Alone Forms: General Discharge Instructions Follow-up/Referrals: Susan Medina PA [[facility] [employer]] - Discharge Medications: New oxycodone-acetaminophen 5-325 mg tablet 1 - 2 tablet PO Q4-6H MDD 6 PRN (Reason: pain) Qty: 30 0RF Xarelto 10 mg tablet 10 mg PO DAILY 6 Days Qty: 6 0RF Continued alprazolam 0.25 mg tablet 0.25 mg PO QHS PRN (Reason: Anxiety) calcium carbonate 600 mg calcium (1,500 mg) tablet 600 mg PO DAILY cholecalciferol (vitamin D3) 50 mcg (2,000 unit) capsule 50 mcg PO DAILY sotalol 80 mg tablet 80 mg PO BID calcium polycarbophil [FiberCon] 625 mg tablet 625 mg PO DAILY Centrum Silver Women 8 mg iron-400 mcg-300 mcg tablet 1 tablet PO DAILY ibandronate [Boniva] 150 mg tablet 150 mg PO MONTHLY Qty: 4 3RF biotin 2,500 mcg Capsule 2,500 mcg PO DAILY magnesium oxide 400 mg magnesium Capsule 400 mg PO DAILY calcium polycarbophil [FiberCon] 625 mg Tablet 1,250 mg PO DAILY ascorbic acid (vitamin C) 100 mg Tablet 100 mg PO DAILY calcium carbonate [Tums] 200 mg calcium (500 mg) Tablet,Chewable 200 mg PO BID PRN (Reason: Indigestion) gabapentin 100 mg capsule See Rx Instructions .ROUTE .COMPLEX Qty: 180 1RF Dose Instruction: TAKE 1 CAPSULE BY MOUTH TW
--- NOTE | 2024-01-06 07:28 | WPDANESPN ---
Anes - Prog Note Post-Op Date/Time: 01/06/24 07:28 Cardiovascular status: normal Respiratory status: normal Airway patency: baseline Mental status: baseline Post-Op hydration status: normal Vital Signs: Last Vital Signs Temp 36.6 C 01/06/24 05:45 Pulse 58 L 01/06/24 05:45 Resp 18 01/06/24 05:45 BP 110/50 L 01/06/24 05:45 Pulse Ox 96 01/06/24 05:45 O2 Del Method Room Air 01/05/24 20:00 O2 Flow Rate 8 01/05/24 13:00 Pain Score (VAS): 0 I/O: Intake & Output 01/05/24 01/05/24 01/06/24 15:59 23:59 07:59 Intake Total 628 092 1650 Balance 373 285 3235 Laboratory Tests 01/06/24 05:54 01/06/24 05:54 01/05/24 01/06/24 08:27 05:54 WBC 12.0 H RBC 4.45 Hgb 12.4 Hct 41.2 MCV 92.6 MCH 27.9 MCHC 30.1 L RDW 15.1 H Plt Count 272 MPV 10.8 H Immature Gran % (Auto) 0.5 Neut % (Auto) 84.2 H Lymph % (Auto) 9.0 L [place] % (Auto) 6.1 Eos % (Auto) 0.0 Baso % (Auto) 0.2 Lymph # (Auto) 1.08 [place] # (Auto) 0.7 H Eos # (Auto) 0.0 Baso # (Auto) 0.0 Abs Immat Gran (auto) 0.06 H Absolute Neuts (auto) 10.1 H Absolute Nucleated RBC 0.000 Nucleated RBC % 0.0 Sodium 139 Potassium 3.7 Chloride 107 Carbon Dioxide 27 Anion Gap 5 L BUN 11 Creatinine 0.50 L Estim Creat Clear Calc 65 Estimated GFR > 60 Glucose 121 H Calcium 8.9 Blood Type A Positive Antibody Screen Negative Post-procedural complaints: none Patient Feedback: Patient satisfied with anesthetic care.
[2024-01-06 07:50] VITALS: BP 121/70; PULSE 66; RESP 16; TEMP 36.2; O2SAT 99
[2024-01-06 08:43] VITALS: PULSE 52
[2024-01-06] MEDS: RIVAROXABAN 10 MG TABLET PO (08:43)
[2024-01-06] MEDS: SOTALOL HCL 80 MG TABLET PO (08:43)
[2024-01-06] MEDS: FAMOTIDINE 20 MG TABLET PO (08:43)
[2024-01-06] MEDS: polyethylene glycoL 3350 17 GM POWD.PACK PO (08:44)
[2024-01-06] MEDS: SENNA/DOCUSATE SODIUM TABLET 2 TAB PO (08:44)
[2024-01-06] MEDS: GABAPENTIN 100 MG CAPSULE PO (08:44)
== END 2024-01-06 10:50 | disposition home or self-care (01) ==
LOC: ANHSURGERY 07:52 → ANH3MEDSUR 14:08
PROVIDERS: Physician Assistant Surgical; PCP Family Medicine; Visit Provider Orthopaedic Surgery
PROC: (CPT 27130; principal; 2024-01-05 10:00)
DX: M16.11 Unilateral primary osteoarthritis, right hip (principal); I48.0 Paroxysmal atrial fibrillation; I10 Essential (primary) hypertension; E78.2 Mixed hyperlipidemia; F41.1 Generalized anxiety disorder; E55.9 Vitamin D deficiency, unspecified; Z79.01 Long term (current) use of anticoagulants
CPT/HCPCS: 27130; 36415; 73502; 80048; 85025; 86850; 86900; 86901; 97110; 97161; 97165; 97530; 97535; A9270; C1776; J0171; J0690; J1100; J1170; J1885; J2270; J2405; J2550; J2704; J2795; J3010; J7030; J7120

== ENCOUNTER 2024-02-24 09:36 | Outpatient (CLI) | payer MEDICARE, SELFPAY ==
--- NOTE | ~2024-02-24 | XR_ITS ---
AP and lateral views of the right hip Clinical history: Arthroplasty Findings: No acute fracture or dislocation is seen. Right hip arthroplasty in place, without evidence of hardware complication. Soft tissues are unremarkable. Impression: No acute abnormality. Right hip arthroplasty in place. Reviewed, dictated and finalized at location . Impression: No acute abnormality. Right hip arthroplasty in place.
== END 2024-02-24 09:37 | disposition home or self-care (01) ==
PROVIDERS: PCP Family Medicine; Visit Provider Orthopaedic Surgery
DX: Z96.641 Presence of right artificial hip joint (principal)
CPT/HCPCS: 73502

== ENCOUNTER 2024-07-02 12:31 | Outpatient (CLI) | payer MEDICARE, SELFPAY ==
--- NOTE | ~2024-07-02 | XR_ITS ---
AP view of the pelvis and AP and lateral views of the right hip Clinical history: Pain Findings: No acute fracture or dislocation is seen. Right hip arthroplasty in place, without evidence of complication. There is mild left hip joint degenerative change.. Soft tissues are unremarkable. Impression: No acute abnormality. Right hip arthroplasty in place. Mild degenerative change left hip joint. Reviewed, dictated and finalized at location . Impression: No acute abnormality. Right hip arthroplasty in place. Mild degenerative change left hip joint.
== END 2024-07-02 12:32 | disposition home or self-care (01) ==
PROVIDERS: PCP Family Medicine; Visit Provider Orthopaedic Surgery
DX: Z96.641 Presence of right artificial hip joint (principal); M16.12 Unilateral primary osteoarthritis, left hip
CPT/HCPCS: 73502

== ENCOUNTER 2024-10-12 11:34 | Outpatient (CLI) | payer MEDICARE, SELFPAY ==
[2024-10-12 12:25] LABS: Basophils Absolute Auto 0.1 K/mm3 (0.0-0.1); Basophils Percent Auto 0.6 % (0.2-1.2); Eosinophils Absolute Auto 0.2 K/mm3 (0-0.3); Eosinophils Percent Auto 1.9 % (0-4.4); Hematocrit 43.4 % (37.0-47.0); Hemoglobin 13.9 g/dL (12.0-15.0); Immature Granulocyte Absolute 0.03 K/mm3 (0.00-0.031); Immature Granulocyte Percent A 0.3 % (0-0.5); Lymphocytes Absolute Auto 1.56 K/mm3 (0.9-3.2); Lymphocytes Percent Auto 16.2 % (18.3-44.2); Mean Corpuscular Hemoglobin 28.7 pg (26-34); Mean Corpuscular Volume 89.7 fl (80-100); Monocytes Absolute Auto 0.6 K/mm3 (0.1-0.6); Monocytes Percent Auto 6.1 % (2.6-8.5); Neutrophils Absolute Auto 7.2 K/mm3 (1.3-6.7); Neutrophils Percent Auto 74.9 % (45.5-73.1); Platelet Count Result 339 k/mm3 (150-375); Red Blood Count 4.84 M/mm3 (4.2-5.4); Red Cell Distribution Width 14.6 % (11.5-14.5); White Blood Count 9.6 K/mm3 (4.5-10.0)
[2024-10-12 12:40] LABS: Alanine Aminotransferase 18 U/L (6-35); Albumin Level 4.3 g/dL (3.5-5.1); Alkaline Phosphatase 98 U/L (38-126); Anion Gap 2 mmol/L (4-12); Aspartate Amino Transferase 16 U/L (14-36); Bilirubin,Total 0.5 mg/dL (0.2-1.3); Blood Urea Nitrogen 16 mg/dL (7-17); Calcium 9.5 mg/dL (8.4-10.2); Carbon Dioxide 27 mmol/L (22-30); Chloride 108 mmol/L (98-107); Estimated Glomerular Filt Rate > 60; Glucose 104 mg/dL (65-110); Potassium 4.2 mmol/L (3.4-5.0); Sodium 137 mmol/L (137-145)
[2024-10-12 13:33] LABS: Add Urine Microscopic? NO; Appearance Urine Clear (Clear); Bilirubin Urine Negative (Negative); Blood Urine Negative (Negative); Color Urine Yellow (Yellow); Glucose Urine UA Negative (Negative); Ketones Urine Negative (Negative); Leukocyte Esterase Ur Negative LEU/UL (Negative); Nitrate Urine Negative (Negative); Protein Urine Negative (Negative); Specific Grav Ur 1.003 (1.001-1.035); Urobilinogen Urine 0.2 mg/dL (<2.0); pH Urine 6.5 (5.0-9.0)
[2024-10-12 15:32] LABS: SARS-CoV-2 RNA PCR Negative (Negative)
== END 2024-10-12 11:35 | disposition home or self-care (01) ==
PROVIDERS: PCP Family Medicine; Visit Provider Student in an Organized Health Care Education/Training Program
DX: R42 Dizziness and giddiness (principal); E03.9 Hypothyroidism, unspecified; R30.0 Dysuria; Z20.822 Contact with and (suspected) exposure to COVID-19
CPT/HCPCS: 36415; 80053; 81003; 84443; 85025; 87635

== ENCOUNTER 2024-10-23 10:59 | Outpatient (CLI) | payer MEDICARE, SELFPAY ==
--- NOTE | ~2024-10-23 | CT_ITS ---
CT sinus wo con Ordering provider: Shante Brenner PA-C History: . R42 - Dizziness and giddiness . Comparison: None. Technique: Thin slice Scans CT of the paranasal sinuses was performed with coronal and sagittal refor matted images. No IV contrast. . Automated exposure control and iterative reconstruction technique w ere employed. The dose-length product was 289.66 mGy-cm. Findings: NASAL SEPTUM: midline. OSTEOMEATAL UNITS: Bilaterally patent. NASAL TURBINATES AND NASOPHARYNX: Normal. PARANASAL SINUSES: Well aerated. VISUALIZED MASTOIDS: Normal as visualized. BONES: Normal. SUPERFICIAL SOFT TISSUES/VISUALIZED BRAIN PARENCHYMA: Normal. IMPRESSION: No definite abnormality seen. Reviewed, dictated and finalized at location A. N EQUIPMENT SUPERVISOR
== END 2024-10-23 11:00 | disposition home or self-care (01) ==
LOC: ANHIMG 11:01
PROVIDERS: PCP Family Medicine; Visit Provider Student in an Organized Health Care Education/Training Program
DX: R42 Dizziness and giddiness (principal)
CPT/HCPCS: 70486